=== PATIENT | male | born 1960 | race Caucasian/White ===

== ENCOUNTER 2019-01-14 18:21 | Emergency (ER) | payer OTHER ==
[~2019-01-14] VITALS: Ht 170.2 cm; Wt 113.0 kg
[2019-01-14] MEDS ORDERED: ONDANSETRON 4MG ODT PO ONE (19:15)
[2019-01-14] MEDS ORDERED: SODIUM CHLORIDE 0.9% 1,000 ML IV ONE (19:15)
[2019-01-14 19:35] LABS: BASOPHILS % 0.4 % (0.0-2.0); EOSINOPHILS % 0.5 % (0.0-5.0); HEMATOCRIT. 38.3 % (42.0-52.0); HEMOGLOBIN. 12.7 g/dL (14.0-18.0); LYMPHOCYTES % 11.8 % (20.0-50.0); MEAN CORPUSCULAR HEMOGLOBIN 29.4 pg (28.0-32.0); MEAN CORPUSCULAR VOLUME 88.6 fL (80.0-94.0); MEAN PLATELET VOLUME 8.2 fl (7.4-10.4); MONOCYTES % 3.6 % (2.0-8.0); NEUTROPHILS % 83.7 % (40.0-76.0); PLATELET 255 x1000/uL (130-400); RED BLOOD CELL COUNT 4.33 mill/uL (4.7-6.1); RED CELL DISTRIBUTION WIDTH 14.3 % (11.6-14.6)
[2019-01-14 19:36] LABS: CHLORIDE 109 mEq/L (98-107)
[2019-01-14 19:38] LABS: PROTHROMBIN TIME 10.5 sec (9.6-11.0)
[2019-01-14] MEDS ORDERED: MORPHINE SULFATE 4 MG/ML CPJ (NOT FOR IM USE) IV ONE (19:45)
[2019-01-14 22:18] VITALS: BP 148/84
== END 2019-01-14 22:51 | disposition home or self-care (01) ==
LOC: ER 18:35
DX: N21.1 Calculus in urethra (principal); N32.9 Bladder disorder, unspecified; N21.0 Calculus in bladder; R10.84 Generalized abdominal pain; E11.9 Type 2 diabetes mellitus without complications; Z90.49 Acquired absence of other specified parts of digestive tract
CPT/HCPCS: 36415; 74176; 80053; 82962; 83690; 85025; 85610; 96361; 96374; 99284; J2270; J7030; Q0162; Z7610

== ENCOUNTER 2024-04-22 21:52 | Emergency (ER) | payer OTHER ==
[~2024-04-22] VITALS: Ht 170.2 cm; Wt 115.0 kg
[2024-04-22 21:56] VITALS: O2SAT 98
[2024-04-22] MEDS ORDERED: MORPHINE SULFATE 4 MG/ML INJ (FOR IV/IM USE) IV STA (22:25)
[2024-04-22] MEDS ORDERED: ONDANSETRON HCL 4MG/2ML INJ IV STA (22:25)
[2024-04-22 23:20] LABS: CLARITY URINE CLEAR (CLEAR); COLOR URINE YELLOW (YELLOW); GLUCOSE URINE 3+ (NEGATIVE); KETONES URINE 1+ (NEGATIVE); LEUKOCYTE ESTERASE URINE NEGATIVE (NEGATIVE); NITRITE URINE NEGATIVE (NEGATIVE); OCCULT BLOOD URINE 3+ (NEGATIVE); PROTEIN URINE NEGATIVE (NEGATIVE); SPECIFIC GRAVITY URINE 1.017 (1.005-1.030); UROBILINOGEN URINE 0.2 E.U./dL (0.2-1.0)
[2024-04-22 23:22] LABS: BASOPHILS % 0.4 % (0.0-2.0); EOSINOPHILS % 0.4 % (0.0-5.0); HEMATOCRIT. 36.7 % (42.0-52.0); LYMPHOCYTES % 8.3 % (20.0-50.0); MEAN CORPUSCULAR HEMOGLOBIN 27.6 pg (28.0-32.0); MEAN CORPUSCULAR HGB CONC 32.6 g/dL (31.0-37.0); MEAN CORPUSCULAR VOLUME 84.6 fL (80.0-94.0); MEAN PLATELET VOLUME 8.3 fl (7.4-10.4); MONOCYTES % 2.9 % (2.0-8.0); PLATELET 362 x1000/uL (130-400); RED BLOOD CELL COUNT 4.34 mill/uL (4.7-6.1); RED CELL DISTRIBUTION WIDTH 14.9 % (11.6-14.6); WHITE BLOOD COUNT 12.7 x1000/uL (4.5-11.0)
[2024-04-22 23:26] LABS: CARBON DIOXIDE 27 mEq/L (21-32); CHLORIDE 101 mEq/L (98-107); SODIUM 134 mEq/L (136-145)
[2024-04-22 23:27] LABS: CALCIUM 9.6 mg/dL (8.7-10.4)
[2024-04-22] MEDS: SODIUM CHLORIDE 0.9% 1,000 ML IV ONE (23:28)
[2024-04-22] MEDS: ONDANSETRON HCL 4MG/2ML INJ IV NR (23:28)
[2024-04-22] MEDS: MORPHINE SULFATE 4 MG/ML INJ (FOR IV/IM USE) IV NR (23:28)
[2024-04-22 23:31] LABS: CREATININE 1.2 mg/dL (0.6-1.3)
[2024-04-22 23:32] LABS: GLUCOSE 298 mg/dL (70-105); TROPONIN I HIGH SENSITIVITY 6 ng/L (3.0-53); UREA NITROGEN BLOOD 13 mg/dL (9-23)
[2024-04-22 23:33] LABS: ALANINE AMINOTRANSFERASE 40 IU/L (10-49); ASPARTATE AMINOTRANSFERASE 28 IU/L (<34)
[2024-04-22 23:34] LABS: ALBUMIN 4.3 g/dL (3.2-4.8); BILIRUBIN DIRECT 0.1 mg/dL (<=3.0); BILIRUBIN TOTAL 0.5 mg/dL (0.1-1.0); PROTEIN TOTAL 8.1 g/dL (6.0-8.3)
[2024-04-22 23:54] LABS: ETHANOL BLOOD < 10 mg/dL (<10)
[2024-04-23 00:35] LABS: BACTERIA URINE TRACE; RBC URINE 50-100 /hpf (0-2); SQUAMOUS EPITHELIAL CELL URINE RARE /lpf (RARE/1+)
[2024-04-23 00:46] LABS: PROTHROMBIN TIME 10.7 sec (9.6-11.0)
[2024-04-23] MEDS: CEFTRIAXONE 1GM/50ML 50 ML IV NR (02:39)
[2024-04-23] MEDS ORDERED: IOHEXOL-300 100 ML BOTTLE ONE (03:01)
[2024-04-23] MEDS ORDERED: DOCU-138 MT (03:59)
[2024-04-23] MEDS ORDERED: IBUP-2029 MT (03:59)
[2024-04-23 05:34] VITALS: TEMP 36.33624
[2024-04-23 05:35] VITALS: BP 154/81; PULSE 82; RESP 17; O2SAT 99
== END 2024-04-23 05:30 | disposition home or self-care (01) ==
LOC: ER 21:52
DX: N20.0 Calculus of kidney (principal); E11.9 Type 2 diabetes mellitus without complications; Z87.19 Personal history of other diseases of the digestive system; Z90.49 Acquired absence of other specified parts of digestive tract
CPT/HCPCS: 80076; 80048; 81003; 80320; 83880; 83690; 85025; 85610; 84484; 36415; 71045; 93005; 96375; 99285; 74177; 96365; J2405; J2270; J7030; Q9967; J0696; G0480